=== PATIENT | male | born 1955 | race Caucasian/White ===

== ENCOUNTER 2021-07-19 06:34 | Outpatient (CLI) | payer MEDICARE, SELFPAY ==
[2021-07-19 06:45] VITALS: BMI 34.8
--- NOTE | 2021-07-19 06:45 | ECG_ITS ---
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 Interpretive Statements NAME OF STUDY: LEXISCAN SESTAMIBI STRESS TEST INDICATION: [Shortness of Breath, ] Procedure: At the baseline, the blood pressure was 152/102 mmHg with a heart rate of 99 bpm. The electrocardiogram showed atrial fibrillation. The Lexiscan was infused over a period of 20 seconds. A total of 0.4 mg of Lexiscan was infused. The stress phase was continued for a total of 5 minutes. Heart rate was at the end of stress phase was 103 bpm and a blood pressure of 128/80mmHg. The EKG at the peak infusion revealed since atrial fibrillation Sestamibi was injected 20 seconds after the Lexiscan infusion. Blood pressure at the end of recovery phase was 142/94 mmHg with a heart rate of 94 bpm. Conclusion: 1. Normal EKG response to Lexiscan infusion 2. No Lexiscan induced chest pain or cardiac arrhythmia. 3. Normal blood pressure and heart rate response. 4. Sestamibi/sestamibi perfusion scan pending; see separate report. Electronically Signed On 07-24-2021 13:20:06 CDT by Ricci Ca M.D. [email or web address]
--- NOTE | 2021-07-19 06:46 | NMCV_ITS ---
NM elo perf SPECT r/s* [id number] Papo Ribeiro Age: 66 Gender: M : 1955 Exam Date: 07/19/2021 07:56 Ordering Phys: Ricci Ca M.D ([email or web address]) Technologist: DARY Mcintyre Exam Location: [facility] Indications: SHORTNESS OF BREATH STRESS TEST Please see separate stress test report in [facility] for full findings IMAGE PROTOCOL Rest/Stress 1 Lexiscan Day Radiopharmaceutical Dose (mCi) Administration Site Administered by Rest: Tc-99m 10.7 IV DARY Silva Sestamibi Stress:Tc-99m 33.0 IV DARY Silva Sestamibi Rest: 19-Jul-2021 60 Discovery 630 Stress: 19-Jul-2021 30 Discovery 630 0.4mg Lexiscan. Images obtained in supine and prone position. SPECT RESULTS Technical Quality: Excellent Raw Data Analysis: Normal Image Corrections: No attenuation or motion correction applied Summed Stress Score: 2 Summed Rest Score: 2 Summed Difference Score: 0 PERFUSION FINDINGS There is a small in size, fixed perfusion defect in the apical inferior wall. 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 IMPRESSIONS 1. Abnormal myocardial perfusion imaging with small sized infarct in apical inferior wall 2. LV systolic function is normal Ricci Ca MD (Electronically Signed) Final Date: 23 July 2021 16:49 S
[2021-07-19] MEDS: regadenoson 0.4 Mg/5 ml Syringe IVP (08:32)
[2021-07-19 08:45] VITALS: BP 142/94; PULSE 94
== END 2021-07-19 06:35 | disposition home or self-care (01) ==
LOC: CDL 06:39
PROVIDERS: PCP Internal Medicine; Visit Provider Internal Medicine
DX: R06.02 Shortness of breath (principal); R07.9 Chest pain, unspecified
CPT/HCPCS: 78452; 93017; A9500; J2785

== ENCOUNTER 2021-07-29 06:29 | Outpatient (CLI) | payer MEDICARE, SELFPAY ==
--- NOTE | 2021-07-29 06:33 | USCV_ITS ---
Papo Ribeiro Age: 66 Gender: M : 1955 Exam Date: 07/29/2021 06:42 Ordering Phys: Ricci Ca M.D ([email or web address]) Technologist: SIMA [place] [facility] [place]: chest pain BP: 158 / 102 HR: 90 Rhythm: Atrial fibrillation Technical Quality: Adequate MEASUREMENTS (Male / Female) Normal Values 2D ECHO LV Diastolic Diameter PLAX 4.4 cm 4.2 - 5.9 / 3.9 - 5.3 cm LV Systolic Diameter PLAX 3.0 cm IVS Diastolic Thickness 1.3 cm 0.6 - 1.0 / 0.6 - 0.9 cm IVS Systolic Thickness 1.8 cm LVPW Diastolic Thickness 1.0 cm 0.6 - 1.0 / 0.6 - 0.9 cm LVPW Systolic Thickness 1.4 cm LVOT Diameter 2.0 cm LV Ejection Fraction 2D Teich 60.4 % LV Ejection Fraction MOD 2C 54.8 % LV Ejection Fraction 2C AL 56.7 % LA Diameter 3.4 cm LA Width 3.5 cm LA Height 5.1 cm RA Width 3.6 cm RA Height 4.5 cm Aorta at Sinotubular Diameter 2.1 cm M-MODE Aortic Annulus Diameter 2.7 cm LA Ao Ratio MM 1.1 MV E Point Septal Separation 1.2 cm DOPPLER AV Peak Velocity 104.0 cm/s LVOT Peak Velocity 72.0 cm/s AV Area Cont Eq vti 2.0 cm squared AV Area Cont Eq pk 2.2 cm squared MV Peak Velocity 104.0 cm/s MV Area PHT 4.5 cm squared MV E' Velocity 54.5 cm/s Mitral E to MV E' Ratio 10.0 Mitral E to LV E' Lateral Ratio 9.7 Mitral E to LV E' Septal Ratio 10.4 TR Peak Velocity 242.6 cm/s TR Peak Gradient 23.5 mmHg TR Mean Velocity 199.4 cm/s TR Mean Gradient 16.3 mmHg TR Velocity Time Integral 80.6 cm TV Peak E Velocity 63.0 cm/s Right Atrial Pressure 3.0 mmHg Pulmonary Artery Systolic Pressu 26.5 mmHg PV Peak Velocity 73.0 cm/s RV Acceleration Time 0.1 s RV Ejection Time 0.3 s RV AcT/ET 0.3 FINDINGS Left Ventricle Normal left ventricular size. LV systolic function is normal with EF of 50-55%. No regional wall motion abnormalities. Diastolic function is indeterminate because of atrial fibrillation Right Ventricle The right ventricle is normal in size and function. Right Atrium The right atrium is normal in size. Left Atrium The left atrium is normal in size. Mitral Valve Structurally normal mitral valve without significant stenosis or prolapse. There is trace mitral regurgitation. Aortic Valve Structurally normal aortic valve without significant sclerosis or stenosis. There is no aortic regurgitation. Tricuspid Valve Structurally normal tricuspid valve without significant stenosis. Mild tricuspid regurgitation. Pulmonary artery systolic pressure is normal. Pulmonic Valve Grossly normal Pericardium Normal pericardium without effusion. Aorta Normal ascending aorta dimension. CONCLUSIONS LV systolic function is normal with EF of 55-60% Diatsolic function is indeterminate because of atrial fibrillation Trace mitral regurgitation Mild tricuspid regurgitation No comparison studies are available Ricci Ca MD (Electronically Signed) Final Date: 01 August 2021 10:23 S
== END 2021-07-29 06:30 | disposition home or self-care (01) ==
LOC: RAD 06:30
PROVIDERS: PCP Internal Medicine; Visit Provider Internal Medicine
DX: R07.9 Chest pain, unspecified (principal); R06.02 Shortness of breath; I08.1 Rheumatic disorders of both mitral and tricuspid valves
CPT/HCPCS: 93306

== ENCOUNTER → 2022-05-06 10:04 | Outpatient (BNVA) | payer MEDICARE, SELFPAY | PROVIDERS: PCP Internal Medicine; Visit Provider Internal Medicine | DX: I48.91 Unspecified atrial fibrillation (principal); Z79.01 Long term (current) use of anticoagulants; I12.9 Hypertensive chronic kidney disease with stage 1 through stage 4 chronic kidney disease, or unspecified chronic kidney disease; N18.30 Chronic kidney disease, stage 3 unspecified; Z87.891 Personal history of nicotine dependence | CPT/HCPCS: 99214 ==

== ENCOUNTER → 2023-06-20 13:31 | Outpatient (BNVA) | payer MEDICARE, SELFPAY | PROVIDERS: PCP Internal Medicine; Visit Provider Internal Medicine | DX: I48.91 Unspecified atrial fibrillation (principal); I12.9 Hypertensive chronic kidney disease with stage 1 through stage 4 chronic kidney disease, or unspecified chronic kidney disease; N18.30 Chronic kidney disease, stage 3 unspecified; Z79.01 Long term (current) use of anticoagulants; Z87.891 Personal history of nicotine dependence | CPT/HCPCS: 99214 ==

== ENCOUNTER 2024-06-17 14:08 | Outpatient (CLI) | payer MEDICARE, SELFPAY ==
--- NOTE | 2024-06-17 14:13 | XR_ITS ---
WS: [id number] SCREENING DEXA SCAN TableNOW CLINICAL INFORMATION: OTHER SPECIFIED DISORDERS OF BD STRUCTURES COMPARISON: None. FINDINGS: The L1-L4 bone mineral density measures 1.458 g/cm2. This corresponds to a T score score of 2.0 and Z score of 1.8. Left femoral neck bone mineral density measures 1.235 g/cm2. This corresponds to a T score of 0.9 and Z score of 1.2. Right femoral neck bone mineral density measures 1.168 g/cm2. This corresponds to a T score 0.5of and Z score of 0.8. Mean femoral neck bone mineral density measures 1.202 g/cm2. This corresponds to a T score of 0.7 and Z score of 1.0. XR/XR DEXA axial skeleton* [id number] IMPRESSION: Normal bone mineralization. Patient's FRAX calculated 10 year probability for major osteoporotic fracture i s 7.9% and osteoporotic hip fracture is 2.1%.
== END 2024-06-17 14:09 | disposition home or self-care (01) ==
LOC: RAD 14:11
PROVIDERS: PCP Family Medicine; Visit Provider Family Medicine
DX: M85.88 Other specified disorders of bone density and structure, other site (principal)
CPT/HCPCS: 77080

== ENCOUNTER → 2024-06-18 12:43 | Outpatient (BNVA) | payer MEDICARE, SELFPAY | PROVIDERS: PCP Family Medicine; Visit Provider Internal Medicine | DX: I48.91 Unspecified atrial fibrillation (principal); I12.9 Hypertensive chronic kidney disease with stage 1 through stage 4 chronic kidney disease, or unspecified chronic kidney disease; N18.30 Chronic kidney disease, stage 3 unspecified; Z79.01 Long term (current) use of anticoagulants | CPT/HCPCS: 99214 ==